=== PATIENT | female | born 1980 | race Caucasian/White ===

== ENCOUNTER 2016-07-27 17:30 | Observation (INO) | payer MEDICAID, OTHER ==
[~2016-07-27] VITALS: Ht 172.7 cm; Wt 110.0 kg
[~2016-07-27 17:30] MED LIST: LEVA500T PO; PERC5TAB12 PO; ZOFR4TAB3 SL
[2016-07-27 17:32] VITALS: BP 133/101; PULSE 112; RESP 15; TEMP 98.4; O2SAT 97
[2016-07-27 18:01] VITALS: BP 138/74; PULSE 106; RESP 15; O2SAT 96
[2016-07-27] MEDS ORDERED: TRAM50TA PO (18:04)
[2016-07-27] MEDS ORDERED: GABA300C5 PO (18:04)
[2016-07-27] MEDS ORDERED: SODIUM CHLORIDE 0.9% FLUSH 10 ML FLUSH IVF PRN (18:15)
[2016-07-27] MEDS ORDERED: ASPIRIN 81 MG CHEW TAB PO ONE (18:15)
[2016-07-27] MEDS ORDERED: LORazepam 2 MG/ML VIAL IV PUSH ONE (18:15)
[2016-07-27 18:31] LABS: AUTOMATED NEUTROPHIL # 5.8 TH/MM3 (1.8-7.7); BASOPHIL # 0.1 TH/MM3 (0-0.2); BASOPHIL % 0.6 % (0.0-2.0); EOSINOPHIL # 0.2 TH/MM3 (0-0.4); EOSINOPHIL % 1.8 % (0.0-4.0); HEMATOCRIT 47.8 % (35.0-46.0); HEMO FLAGS DIFF FINAL; LYMPH % 24.3 % (9.0-44.0); LYMPHOCYTE # 2.1 TH/MM3 (1.0-4.8); MONO % 6.8 % (0.0-8.0); NEUT % 66.5 % (16.0-70.0); PLATELET COUNT 215 TH/MM3 (150-450); RED BLOOD COUNT 5.43 MIL/MM3 (4.00-5.30); RED CELL DISTRIBUTION WIDTH 13.7 % (11.6-17.2); WHITE BLOOD COUNT 8.8 TH/MM3 (4.0-11.0)
--- NOTE | 2016-07-27 18:33 | RADRPT ---
EXAM DATE/TIME: 07/27/2016 18:25 [place] COMPARISON: No previous studies available for comparison. INDICATIONS : Chest pain, short of breath. MEDICAL HISTORY : None. SURGICAL HISTORY : None. ENCOUNTER: Initial ACUITY: 1 day PAIN SCORE: 9/10 LOCATION: Bilateral chest FINDINGS: A single view of the chest demonstrates the lungs to be symmetrically aerated without evidence of mas s, infiltrate or effusion. The cardiomediastinal contours are unremarkable. Osseous structures are intact. There are overlying electrocardiogram leads. CONCLUSION: No acute disease. Bucky Ford MD on July 27, 2016 at 18:31 Board Certified Radiologist. This report was verified electronically.
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
[2016-07-27 18:45] VITALS: BP 136/82; PULSE 100; RESP 15; O2SAT 95; O2SAT 99
[2016-07-27 19:11] LABS: ANION GAP 9 MEQ/L (5-15); BLOOD UREA NITROGEN 6 MG/DL (7-18); CHLORIDE 108 MEQ/L (98-107); GLOMERULAR FILTRATION RATE 63 ML/MIN (>89); MAGNESIUM 2.2 MG/DL (1.5-2.5); SODIUM (NA) 140 MEQ/L (136-145)
[2016-07-27 19:12] LABS: POTASSIUM 3.7 MEQ/L (3.5-5.1)
[2016-07-27 19:30] LABS: CREATINE KINASE 86 U/L (26-192)
--- NOTE | 2016-07-27 19:43 | EKG ---
Date Performed: 07/27/2016 Time Performed: 17:46:53 PTAGE: 35 years EKG: SINUS TACHYCARDIA BORDERLINE LEFT AXIS DEVIATION ABNORMAL RHYTHM ECG NO PREVIOUS TRACING DOCTOR: Elise Thomas Interpretating Date/Time 07/27/2016 19:42:00
[2016-07-27] MEDS ORDERED: SODIUM CHLORIDE 0.9% FLUSH 10 ML FLUSH IV FLUSH PRN (19:45)
[2016-07-27] MEDS ORDERED: MORPHINE SULFATE 4 MG/ML INJ IV PRN (19:45)
[2016-07-27] MEDS ORDERED: ONDANSETRON HCL 4 MG/2 ML VIAL IV PRN (19:45)
[2016-07-27] MEDS ORDERED: SODIUM CHLORIDE 0.9% FLUSH 10 ML FLUSH IV FLUSH SCH (21:00)
== END 2016-07-27 21:00 | disposition left against medical advice (07) ==
LOC: NEPD 17:30 → NEDA 19:45
PROVIDERS: ADMIT Internal Medicine Interventional Cardiology; ATTEND Internal Medicine Interventional Cardiology
DX: R07.9 Chest pain, unspecified (principal); M19.90 Unspecified osteoarthritis, unspecified site; J45.909 Unspecified asthma, uncomplicated; E11.9 Type 2 diabetes mellitus without complications; F17.200 Nicotine dependence, unspecified, uncomplicated; Z88.5 Allergy status to narcotic agent
CPT/HCPCS: 71010; 80048; 82550; 83735; 84484; 85025; 93005; 96374; 99285; G0378; J2060